=== PATIENT | female | born 1940 | race Hispanic/Latino ===

== ENCOUNTER 2017-10-14 06:09 | Day surgery (SDC) | payer MEDICARE ==
[2017-10-07 09:37] VITALS: BMI 21.2
[2017-10-14 07:03] LABS: BASO # 0.03 K/mm3 (0.0-2.0); BASO % 0.5 % (0.0-3.0); EOS # 0.1 (0.0-0.7); GRAN # 2.97 (1.4-6.5); GRAN % 49.3 % (50.0-68.0); HEMOGLOBIN 13.6 g/dL (12.0-16.0); LYMPH # 2.4 (1.2-3.4); LYMPH % 40.4 % (22.0-35.0); MEAN CELL VOLUME 100.3 fl (80.0-105.0); MEAN CORPUSCULAR HGB CONC 33.9 g/dl (31.0-37.0); MEAN PLATELET VOLUME 10.5 fl (7.0-11.0); MONO # 0.5 (0.1-0.6); MONO % 7.8 % (1.0-6.0); RED CELL DISTRIBUTION WIDTH 13.8 % (11.5-14.5)
[2017-10-14] MEDS ORDERED: Midazolam 2 MG/2 ML VIAL ONE ×2 (07:04→08:11)
[2017-10-14] MEDS ORDERED: Phenylephrine 10 mg/ml Inj ONE (07:04)
[2017-10-14] MEDS ORDERED: Lidocaine 2% Inj (20ml) ONE (07:04)
[2017-10-14] MEDS ORDERED: HEPARIN SODIUM/NS 1,000 ML IV ONE (07:05)
[2017-10-14] MEDS ORDERED: Iodixanol 320 MG/ML 100 ML BOTTLE IV ONE (07:05)
[2017-10-14] MEDS ORDERED: Iodixanol 320 MG/ML 200 ML BOTTLE IV ONE (07:05)
[2017-10-14] MEDS ORDERED: Nitroglycerin 50mg in D5W 0 MG/0 ML BOTTLE IV ONE (07:05)
[2017-10-14] MEDS ORDERED: Iohexol 350mgl/ml 50 ML ONE (07:05)
[2017-10-14 07:08] LABS: BLOOD UREA NITROGEN 16 mg/dL (7-21); CALCIUM 9.9 mg/dL (8.4-10.5); GFR AFRICAN-AMERICAN > 60; GFR NON-AFRICAN AMERICAN > 60
[2017-10-14 07:18] LABS: INR 0.92 (0.93-1.08); PARTIAL THROMBOPLASTIN TIME 31.9 Seconds (25.1-36.5); PROTHROMBIN TIME 10.6 SECONDS (9.4-12.5)
[2017-10-14 07:20] VITALS: RESP 18
[2017-10-14] MEDS ORDERED: Adenosine 90 mg/30mL IV ONE (08:21)
[2017-10-14] MEDS ORDERED: Sodium Chloride 0.9% 1,000 ML IV SCH (09:00)
[2017-10-14 09:16] VITALS: TEMP 97.4
[2017-10-14 12:41] VITALS: O2SAT 96
[2017-10-14 15:00] VITALS: BP 144/76; PULSE 66
--- NOTE | 2017-10-14 16:12 | CARD ---
APPROVED REPORT EKG Measurement Heart [id number] IN [id number] <Conclusion> Sinus bradycardia Otherwise normal ECG
--- NOTE | 2017-10-14 20:05 | CARDCATH ---
PROCEDURE DATE: 10/14/2017 HISTORY: The patient is a 77-year-old woman with a history of hypertension, hypercholesterolemia and history of a TIA in the past, who presents for cardiac catheterization. Her stress test was abnormal. Catheterization was recommended. PROCEDURE: Left heart catheterization with coronary arteriography, left ventriculogram, and FFR were performed. There were no complications. Rhe tight femoral artery was cannulated with a 6-Divehi sheath. I performed moderate sedation, which included the presence of an independent trained observer who assisted in monitoring the patient's level of consciousness and physiologic status. After administration of Versed and fentanyl, my intra service time was 30 minutes. FINDINGS: The findings on catheterization revealed a left ventricle that contracted normally. Estimated ejection fraction is 70%. Her coronary anatomy revealed a right dominant circulation. The RCA was unremarkable. The left main artery was unremarkable. The circumflex artery and obtuse marginal branches revealed intimal irregularities without critical lesions. The LAD revealed mild intimal irregularities without significant stenosis. There was a moderate sized diagonal vessel that revealed a 60% to 70% stenosis in the proximal portion, and FFR was performed. The FFR result was 0.94. No intervention was performed. Angio-Seal was used to close the femoral artery site. The patient tolerated the procedure well. In summary, the procedure revealed 60% to 70% proximal diagonal vessel lesion off the LAD. LV function is normal. FFR was 0.94. Given these findings, the patient's treatment will be medical. She needs to be on aspirin indefinitely and undergo a strict cardiac risk reduction program, which needs to include statin therapy. Michael Ray MD
== END 2017-10-14 15:15 | disposition home or self-care (01) ==
LOC: CATH 06:09
PROVIDERS: ATTEND Internal Medicine Cardiovascular Disease
DX: I25.10 Atherosclerotic heart disease of native coronary artery without angina pectoris (principal); E78.00 Pure hypercholesterolemia, unspecified; I10 Essential (primary) hypertension; Z86.73 Personal history of transient ischemic attack (TIA), and cerebral infarction without residual deficits
CPT/HCPCS: 36415; 80048; 85025; 85610; 85730; 86850; 86900; 93005; 93458; 93571; 99152; 99153; C1760; C1769 ×2; C1887 ×3; C2629; J0153; J0360; J0583; J1644; J2250; J2370; J3010; J7030; J7040